=== PATIENT | female | born 1985 | race Caucasian/White ===

== ENCOUNTER 2018-04-22 21:12 | Emergency (ER) | payer OTHER ==
--- NOTE | 2018-04-22 22:21 | ER Document Report ---
ED General - General Mode of Arrival: Ambulatory Information source: Patient TRAVEL OUTSIDE OF THE [place] IN LAST 30 DAYS: No - General Chief Complaint: Back Pain Stated Complaint: BACK PAIN Time Seen by Provider: 04/22/18 21:51 Notes: Patient is a 32 year old female with chronic back pain and a history of chronic pain management presents to the emergency department complaining of back pain onset today. Patient states she was at her friends house when she fell backwards and hit her back in their kitchen. Patient states the pain is located at her mid to lower thoracic area and lower lumbar area. Patient also reported to [facility] yesterday due to back pain and received Lidoderm patches, Flexeril and a Medrol Dosepak. Patient states she has a referral to see a neurosurgeon at [place] in June. She further states she may have a SI joint fusion performed and also stated and neurologist reported and diagnosis of dural ectasia from and MRI but another neurologist disagreed with this diagnosis. Patient currently taking Celexa (40 mg once daily) and Gabapentin (600 mg twice daily). Patient reports her LMP being in September 2015 further stating she has a Mirena IUD. (PÉREZ CALERO) This 32-year-old female patient has a history of chronic low back pain, used to be on 10 mg oxycodone on a regular basis. She states her MRI showed dural ectasia according one-year radiologist, a another reviewing radiologist disagreed with that. She also states that she is being considered for an SI joint fusion. She states that she has had sciatica for a long time, but cannot tell me what nerve roots are being affected based on her MRI. She was in the emergency room of the [facility] yesterday and received prescriptions for Flexeril, Lidoderm patches, and a Medrol Dosepak. She was out in town visiting at a friend's house this evening when she slipped in the kitchen, struck her mid thoracic back against a countertop, and fell to the floor landing on her back. She reports when she hit the floor it "made everything tense". She has pain in her back from her midthoracic back down to her sacral region. She places her hand over these areas to indicate the area of discomfort. There is a small area of erythema over the center of her mid thoracic spine which could correspond to striking the countertop. (PÉREZ GARZA) - Related Data Allergies/Adverse Reactions: Sulfa (Sulfonamide Antibiotics) Allergy (Verified 04/22/18 21:15) Past Medical History - General Information source: Patient - Social History Smoking Status: Unknown if Ever Smoked Frequency of alcohol use: None Family History: Reviewed & Not Pertinent Review of Systems - Review of Systems Constitutional: No symptoms reported EENT: No symptoms reported Cardiovascular: No symptoms reported Respiratory: No symptoms reported Gastrointestinal: No symptoms reported Genitourinary: No symptoms reported Female Genitourinary: No symptoms reported Musculoskeletal: See HPI, Back pain Skin: No symptoms reported Hematologic/Lymphatic: No symptoms reported Neurological/Psychological: No symptoms reported -: Yes All other systems reviewed and negative Physical Exam - General General appearance: Appears well, Alert In distress: None - HEENT Head: Normocephalic, Atraumatic Eyes: Normal Conjunctiva: Normal Extraocular movements intact: Yes Pupils: PERRL Neck: Normal - Respiratory Respiratory status: No respiratory distress - Cardiovascular Rhythm: Regular Heart sounds: Normal auscultation Murmur: No Friction rub: No Gallop: None auscultated - Abdominal Inspection: Normal Distension: No distension Bowel sounds: Normal Tenderness: Nontender Organomegaly: No organomegaly - Back Back: Tender - Tender to palpation to the mid to lower thoracic region. Tender to palpation to the lumbar region, more so to the lateral aspects of lumbar region. Less tender to palpation to the spinous processes. - Extremities General upper extremity: Normal ROM General lower extremity: Normal ROM - Neurological Neuro grossly intact: Yes Cognition: Normal Orientation: AAOx4 [place] Coma Scale Eye Opening: Spontaneous [place] Coma Scale Verbal: Oriented [place] Coma Scale Motor: Obeys Commands [place] Coma Scale Total: 15 Speech: Normal - Psychological Associated symptoms: Normal affect, Normal mood - Skin Skin Temperature: Warm Skin Moisture: Dry Skin Color: Normal - Vital signs Vitals: Temp Pulse Resp BP Pulse Ox 99.2 F 97 16 129/87 H 98 04/22/18 21:16 04/22/18 21:16 04/22/18 21:16 04/22/18 21:16 04/22/18 21:16 - Vital Signs Vital signs: Temp Pulse Resp BP Pulse Ox 99.2 F 97 16 129/87 H 98 04/22/18 21:16 04/22/18 21:16 04/22/18 21:16 04/22/18 21:16 04/22/18 21:16 Discharge - Discharge Clinical Impression: Low back pain Qualifiers: Chronicity: chronic Back pain laterality: bilateral Sciatica presence: unspecified whether sciatica present Qualified Code(s): M54.5 - Low back pain Thoracic back pain Qualifiers: Chronicity: acute Back pain laterality: bilateral Qualified Code(s): M54.6 - Pain in thoracic spine Fall Qualifiers: Encounter type: initial encounter Qualified Code(s): W19.XXXA - Unspecified fall, initial encounter Contusion of mid back Qualifiers: Encounter type: initial encounter Laterality: unspecified laterality Qualified Code(s): S20.229A - Contusion of unspecified back wall of thorax, initial encounter Condition: Stable Disposition: HOME, SELF-CARE Additional Instructions: Your slip and fall the day probably caused an exacerbation of the pain you regularly having her low back. Your exam suggests that you possibly did strike your mid upper back when you fell against the counter. You should continue your regular medications and the medications that were prescribed yesterday at the [facility] emergency room. You can also add ibuprofen or Aleve to help with the acute worsening of your pain. You should plan to rest and limit activity for a few days. Follow-up with your primary care provider if not improving this week. RETURN TO THE EMERGENCY ROOM IF ANY NEW OR WORSENING SYMPTOMS. Referrals: DERREK STOCK MD [ACTIVE STAFF] - Follow up as needed Scribe Attestation: 04/22/18 22:44 I personally performed the services described in the documentation, reviewed and edited the documentation which was dictated to the scribe in my presence, and it accurately records my words and actions. (PÉREZ GARZA) Scribe Documentation - Scribe Written by Barringtone:: Dirk Beverly, 04/22/2018 22:24 acting as scribe for :: Charlette
--- NOTE | 2018-04-22 23:45 | RADIOLOGY REPORT (SQ) ---
EXAM DESCRIPTION: XR LUMBAR SPINE ANTEROPOSTERIOR, LATERAL, AND OBLIQUES COMPLETED DATE/TME: 04/22/2018 22:14 CLINICAL HISTORY: 32 years Female, Fall, low back pain COMPARISON: None. Findings: Normal alignment and curvature. Vertebral and intervertebral heights are maintained. L5 posterior fusion variant. Extraspinal structures are grossly intact. IMPRESSION: No acute findings of XR LUMBAR SPINE ANTEROPOSTERIOR, LATERAL, AND OBLIQUES .
[2018-04-23 00:09] VITALS: BP 122/81
== END 2018-04-23 00:09 | disposition home or self-care (01) ==
LOC: ER 21:12
DX: S20.229A Contusion of unspecified back wall of thorax, initial encounter (principal); M54.6 Pain in thoracic spine; M54.5 Low back pain; W18.30XA Fall on same level, unspecified, initial encounter; Y92.000 Kitchen of unspecified non-institutional (private) residence as the place of occurrence of the external cause; Z88.2 Allergy status to sulfonamides
CPT/HCPCS: 72110; 99283